=== PATIENT | female | born 1990 | race Caucasian/White ===

== ENCOUNTER 2018-06-06 18:05 | Emergency (ER) | payer BC ==
--- NOTE | 2018-06-06 20:18 | RADIOLOGY REPORT (SQ) ---
EXAM DESCRIPTION: KNEE RIGHT 2 VIEWS COMPLETED DATE/TIME: 06/06/2018 7:38 pm REASON FOR STUDY: Foreign body COMPARISON: None. EXAM PARAMETERS: NUMBER OF VIEWS: Two view. TECHNIQUE: AP and lateral radiographic images acquired of the right knee. LIMITATIONS: None. FINDINGS: MINERALIZATION: Normal. BONES: No acute fracture or dislocation. No worrisome bone lesions. JOINTS: No effusion. SOFT TISSUES: No significant soft tissue swelling. 6 mm radiopaque foreign body in the posterolatera l subcutaneous soft tissues approximately 9 cm above the knee joint level. OTHER: No other significant finding. IMPRESSION: 6 mm radiopaque foreign body in the posterolateral subcutaneous soft tissues approximate ly 9 cm above the knee joint level.NO FRACTURE. TECHNICAL DOCUMENTATION: JOB ID: [id number] [employer]- All Rights Reserved Reading location - IP/workstation name: [email or web address]
[2018-06-06] MEDS ORDERED: CLINDAMYCIN HCL 150 MG CAPSULE PO ONE (20:25)
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
[2018-06-06 20:45] VITALS: BP 117/76
== END 2018-06-06 20:40 | disposition home or self-care (01) ==
LOC: ER 18:05
DX: S80.851A Superficial foreign body, right lower leg, initial encounter (principal); X03.0XXA Exposure to flames in controlled fire, not in building or structure, initial encounter; Y93.9 Activity, unspecified; Y92.9 Unspecified place or not applicable
CPT/HCPCS: 99283

== ENCOUNTER 2018-06-11 10:01 | Day surgery (SDC) | payer BC ==
[~2018-06-11 10:01] MED LIST: CLINDAMYCIN 600 MG/D5W RTU 600 MG/50 ML RTUPB IV ONE; CLINDAMYCIN 600 MG/D5W RTU 600 MG/50 ML RTUPB IV PRN; RINGERS SOLUTION,LACTATED 1,000 ML IV PRN
[2018-06-11] MEDS ORDERED: FENTANYL CITRATE INJ/PF 100 MCG/2 ML AMPUL ONE ×2 (10:42→12:55)
[2018-06-11] MEDS ORDERED: DEXAMETHASONE SOD PHOSPHATE INJ 4 MG/1 ML VIAL ONE (10:42)
[2018-06-11] MEDS ORDERED: MIDAZOLAM 2 MG/2 ML INJ ONE (10:42)
[2018-06-11] MEDS ORDERED: ONDANSETRON HCL INJ/PF 4 MG/2 ML SDV ONE (10:42)
[2018-06-11] MEDS ORDERED: PROPOFOL INJ 200 MG/20 ML VIAL IV ONE (10:43)
[2018-06-11 11:14] LABS: HEMATOCRIT 34.4 % (36.0-47.0); HEMOGLOBIN 11.9 g/dL (12.0-15.5); MEAN CORPUSCULAR HEMOGLOBIN 30.5 pg (27.0-33.4); MEAN CORPUSCULAR HGB CONC 34.5 g/dL (32.0-36.0); MEAN CORPUSCULAR VOLUME 89 fl (80-97); PLATELET COUNT 267 10^3/uL (150-450); RED BLOOD COUNT 3.89 10^6/uL (3.72-5.28); RED CELL DISTRIBUTION WIDTH 14.2 % (11.5-14.0); WHITE BLOOD COUNT 6.5 10^3/uL (4.0-10.5)
[2018-06-11] MEDS ORDERED: LIDOCAINE 1% INJ-PF (10 MG/ML) 30 ML SDV ONE (11:44)
[2018-06-11] MEDS ORDERED: ONDANSETRON HCL INJ/PF 4 MG/2 ML SDV IV PRN (11:58)
[2018-06-11] MEDS ORDERED: MEPERIDINE HCL/PF INJ 25 MG/1 ML DISP.SYRIN IV PRN (11:58)
[2018-06-11] MEDS ORDERED: FENTANYL CITRATE INJ/PF 100 MCG/2 ML AMPUL IV PRN ×3 (11:58)
[2018-06-11] MEDS ORDERED: PROMETHAZINE HCL INJ 25 MG/1 ML VIAL IV PRN ×2 (11:58)
[2018-06-11] MEDS ORDERED: MORPHINE SULFATE 10 MG/ML INJ IV PRN (11:58)
[2018-06-11] MEDS ORDERED: DIPHENHYDRAMINE HCL 50 MG/ML VIAL IV PRN (11:58)
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
--- NOTE | 2018-06-11 12:49 | Discharge Summary ---
Discharge Summary (SDC) - Discharge Final Diagnosis: Retained foreign body right lower extremity Date of Surgery: 06/11/18 Discharge Date: 06/11/18 Condition: Good Treatment or Instructions: Keep dressing on for 48 hours, then removed, and cover operative incision with a Band-Aid; no heavy lifting, pushing, pulling, or physical activity. Return to [facility] in approximately 1 week for wound check and suture removal. No postoperative antibiotics required. Patient may take Tylenol or Motrin as needed pain. Referrals: SHANNAN FALL MD [Primary Care Provider] - Discharge Diet: As Tolerated Discharge Activity: No Lifting Over 10 Pounds, No Lifting/Push/Pulling Home Care Assistance: None Needed Report the Following to Your Physician Immediately: Shortness of Breath, Increase in Pain, Fever over 101 Degrees
[2018-06-11] MEDS ORDERED: IBUPROFEN 800 MG TABLET ONE (13:53)
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
== END 2018-06-11 14:34 | disposition home or self-care (01) ==
LOC: OROUT 10:01
PROVIDERS: ATTEND Surgery
DX: M79.5 Residual foreign body in soft tissue (principal); Z88.2 Allergy status to sulfonamides; Z88.0 Allergy status to penicillin; Z88.3 Allergy status to other anti-infective agents
CPT/HCPCS: 27372; 36415; 85027; 81025; 73552; J2250; J1100; J3010; J3490; J2405; J2704; 01250